=== PATIENT | male | born 1960 | race Caucasian/White ===

== ENCOUNTER 2023-12-22 16:34 | Inpatient (IN) | payer OTHER ==
[2023-12-22 16:57] LABS: VENOUS BASE EXCESS -13.2 mmol/L (-2-2); VENOUS O2 SATURATION 96.9 % (70-80); VENOUS PCO2 48.3 mmHg (38-52)
[2023-12-22 16:59] LABS: EOS % 5.1 % (0-4.5); HEMATOCRIT 27.5 % (35.4-49); HEMOGLOBIN 8.7 GM/dL (11.7-16.9); LYMPH % 27.6 % (8-40); MCHC 31.5 g/dl (32.0-35.9); MEAN CELL VOLUME 88.9 fl (80-96); MEAN PLT VOLUME 8.2 fl (7.5-11.1); MONO % 7.2 % (3.8-10.2); NEUT % 59.1 % (42.8-82.8); PLATELET COUNT 174 10^3/uL (134-434); RDW 17.2 % (11.9-15.9); WHITE BLOOD COUNT 4.3 K/mm3 (4.0-10.0)
[2023-12-22 17:06] LABS: INR 1.23 (0.83-1.09); PROTHROMBIN TIME (PATIENT) 14.2 SEC (9.7-13.0)
[2023-12-22 17:09] LABS: ACTIVATED PTT 28.5 SECONDS (25.2-36.5)
[2023-12-22 17:17] LABS: VENOUS PH 7.125 (7.310-7.410)
[2023-12-22 17:20] LABS: CHLORIDE 103 mmol/L (98-107); POTASSIUM 3.9 mmol/L (3.5-5.1); SODIUM 133 mmol/L (136-145)
[2023-12-22 17:23] LABS: ALBUMIN 2.5 g/dl (3.4-5.0); ANION GAP 9 mmol/L (4-13); BLOOD UREA NITROGEN 44.5 mg/dL (7-18); CALCIUM 7.8 mg/dL (8.5-10.1); CO2 21 mmol/L (21-32); GLUCOSE,RANDOM 182 mg/dL (74-106); MAGNESIUM 2.1 mg/dL (1.8-2.4)
[2023-12-22 17:26] LABS: CREATININE 1.3 mg/dL (0.55-1.3); PHOSPHOROUS 6.5 mg/dL (2.5-4.9); SGOT/AST 86 U/L (15-37); SGPT/ALT 35 U/L (13-61)
[2023-12-22 17:28] LABS: BILIRUBIN,TOTAL 0.5 mg/dL (0.2-1); TOT PROT 7.2 g/dl (6.4-8.2)
[2023-12-22 17:29] LABS: ALK PHOS 163 U/L (45-117)
[2023-12-22 17:40] LABS: LACTIC ACID 7.3 mmol/L (0.4-2.0)
[2023-12-22] MEDS: SODIUM CHLORIDE 1,000 ML IV STA ×2 (20:15→22:06)
[2023-12-22 20:16] LABS: EPI CELLS 2 /uL (0-25.1); HYALINE CASTS 0 /uL (0-3.1); PH,URINE 5.5 (5.0-8.0); URINE APPEARANCE CLEAR; URINE BACTERIA 231 /uL (0-1359); URINE BILIRUBIN NEGATIVE (NEGATIVE); URINE COLOR YELLOW; URINE GLUCOSE (UA) NEGATIVE (NEGATIVE); URINE KETONE NEGATIVE (NEGATIVE); URINE LEUK ESTERASE NEGATIVE (NEGATIVE); URINE NITRITE NEGATIVE (NEGATIVE); URINE PROTEIN 1+ (NEGATIVE); URINE RBC 7 /uL (0-23.9)
[2023-12-22 20:18] LABS: COCAINE, UR NEGATIVE (NEGATIVE)
[2023-12-22 20:19] LABS: PHENCYCLIDINE,URINE NEGATIVE (NEGATIVE)
[2023-12-22 20:20] LABS: METHADONE, UR NEGATIVE (NEGATIVE); URINE AMPHETAMINES NEGATIVE (NEGATIVE)
[2023-12-22 20:25] LABS: OPIATES, URI POSITIVE (NEGATIVE); URINE BARBITURATES NEGATIVE (NEGATIVE); URINE BENZODIAZEPINES POSITIVE (NEGATIVE)
[2023-12-22] MEDS ORDERED: PIPERACILLIN/TAZOB 3.375 GM 3.375 GM in DEXTROSE 5%-WATER - 50 ML IVPB SCH (20:30)
[2023-12-22] MEDS: MIDAZOLAM HCL 5 MG/1 ML Single Dose Vial IVPUSH ONE (20:38)
[2023-12-22] MEDS: MUPIROCIN 2% TOPICAL OINTMENT FOR DECOLONIZATION NS SCH (21:54)
[2023-12-22] MEDS: CHLORHEXIDINE GLUCONATE 4% CLEANSER FOR DECOLONIZATION TP SCH (21:55)
[2023-12-22] MEDS: MIDAZOLAM IN 0.9 % SOD.CHLORID 100 MG/100 ML PLAST..BAG IVPB SCH (21:55)
[2023-12-22] MEDS ORDERED: LACTATED RINGERS SOLUTION 1000 ML INFUS.BAG IV ONE (22:58)
[2023-12-22] MEDS: PIPERACILLIN/TAZOB 3.375 GM 3.375 GM in DEXTROSE 5%-WATER - 50 ML IVPB SCH (23:03)
[2023-12-22] MEDS: VANCOMYCIN/WATER 1250 MG 1,250 MG/250 ML BAG IVPB SCH (23:03)
[2023-12-22 23:32] LABS: POTASSIUM 3.6 mmol/L (3.5-5.1)
[2023-12-22 23:34] LABS: CALCIUM 8.1 mg/dL (8.5-10.1)
[2023-12-22 23:35] LABS: ALBUMIN 2.4 g/dl (3.4-5.0)
[2023-12-22 23:39] LABS: BILIRUBIN,TOTAL 0.6 mg/dL (0.2-1); TOT PROT 6.9 g/dl (6.4-8.2)
[2023-12-22] MEDS: LACTATED RINGERS SOLUTION 1000 ML INFUS.BAG IV ONE (23:43)
[2023-12-22 23:55] LABS: LACTIC ACID 3.3 mmol/L (0.4-2.0)
[2023-12-23 00:33] LABS: ARTERIAL BLD GAS O2 SATURATION 99.4 % (95-98); ARTERIAL BLOOD GAS BASE EXCESS -3.3 mmol/L (-2-2); ARTERIAL BLOOD GAS PO2 215.6 mmHg (80-100); ARTERIAL BLOOD GAS pH 7.375 (7.350-7.450)
[2023-12-23 00:34] LABS: VENT MODE A/C; VENT RATE 18
[2023-12-23] MEDS: LACTULOSE 20 GM/30 ML UDC (FOR ORAL USE ONLY) PO SCH (00:37)
[2023-12-23] MEDS ORDERED: HEPARIN NA (PORCINE) 5,000 UNITS/ML 1ML VIAL IVPUSH PRN (01:00)
[2023-12-23] MEDS: LACTATED RINGERS SOLUTION 1,000 ML/1,000 ML INFUS.BAG IV SCH (01:26)
[2023-12-23] MEDS: HEPARIN INFUSION - 25,000 UNITS/500 ML INFUS.BAG IVPB SCH (01:26)
[2023-12-23] MEDS ORDERED: FENTANYL NS IVPB 500 MCG/100 ML BAG IVPB ONE (04:46)
[2023-12-23 06:36] LABS: BASO % 0.1 % (0-2.0); HEMATOCRIT 28.2 % (35.4-49); HEMOGLOBIN 9.3 GM/dL (11.7-16.9); MCH 28.1 pg (25.7-33.7); MCHC 32.8 g/dl (32.0-35.9); MEAN CELL VOLUME 85.6 fl (80-96); MEAN PLT VOLUME 8.1 fl (7.5-11.1); MONO % 5.7 % (3.8-10.2); NEUT % 89.2 % (42.8-82.8); PLATELET COUNT 175 10^3/uL (134-434); RBC 3.29 M/mm3 (4.00-5.60); RDW 16.3 % (11.9-15.9); WHITE BLOOD COUNT 5.2 K/mm3 (4.0-10.0)
[2023-12-23 06:52] LABS: POTASSIUM 3.8 mmol/L (3.5-5.1)
[2023-12-23] MEDS: FENTANYL NS IVPB 500 MCG/100 ML BAG IVPB SCH (06:53)
[2023-12-23 07:00] LABS: CALCIUM 7.8 mg/dL (8.5-10.1)
[2023-12-23 07:02] LABS: ALBUMIN 2.5 g/dl (3.4-5.0); BLOOD UREA NITROGEN 33.7 mg/dL (7-18); MAGNESIUM 1.6 mg/dL (1.8-2.4)
[2023-12-23 07:04] LABS: BILIRUBIN,TOTAL 0.9 mg/dL (0.2-1); CREATININE 0.9 mg/dL (0.55-1.3); PHOSPHOROUS 4.1 mg/dL (2.5-4.9)
[2023-12-23 07:05] LABS: LACTIC ACID 2.8 mmol/L (0.4-2.0); TOT PROT 7.4 g/dl (6.4-8.2)
[2023-12-23] MEDS: MAGNESIUM SULF 50% (8.12 MEQ/2 ML-1 GM VIAL) IVPB ONE (08:08)
[2023-12-23] MEDS: HEPARIN NA (PORCINE) 5,000 UNITS/ML 1ML VIAL IVPUSH PRN (08:59)
[2023-12-23] MEDS: PANTOPRAZOLE SODIUM 40 MG VIAL IVPUSH SCH (09:05)
[2023-12-23] MEDS: PROPOFOL 1,000,000 MCG/100 ML VIAL IVPB SCH (11:33)
[2023-12-23] MEDS: ENOXAPARIN NA (PORCINE) 120 MG/0.8 ML DISP.SYRIN SQ SCH (13:40)
[2023-12-23 14:56] LABS: CHLORIDE 102 mmol/L (98-107); SODIUM 138 mmol/L (136-145)
[2023-12-23 14:58] LABS: BLOOD UREA NITROGEN 30.8 mg/dL (7-18); CO2 28 mmol/L (21-32); GLUCOSE,RANDOM 152 mg/dL (74-106)
[2023-12-23 15:01] LABS: CREATININE 0.7 mg/dL (0.55-1.3)
[2023-12-23 15:06] LABS: ANION GAP 8 mmol/L (4-13); POTASSIUM 2.9 mmol/L (3.5-5.1)
[2023-12-23] MEDS: SODIUM CHLORIDE 0.45% 1,000 ML IV SCH (15:08)
[2023-12-23 15:43] LABS: EPI CELLS 0 /uL (0-25.1); HYALINE CASTS 0 /uL (0-3.1); URINE APPEARANCE CLEAR; URINE BACTERIA 2 /uL (0-1359); URINE BILIRUBIN NEGATIVE (NEGATIVE); URINE COLOR YELLOW; URINE GLUCOSE (UA) NEGATIVE (NEGATIVE); URINE KETONE NEGATIVE (NEGATIVE); URINE LEUK ESTERASE NEGATIVE (NEGATIVE); URINE NITRITE NEGATIVE (NEGATIVE); URINE PROTEIN NEGATIVE (NEGATIVE); URINE RBC 494 /uL (0-23.9); URINE WBC 4 /uL (0-25.8)
[2023-12-23] MEDS: POTASSIUM CHLORIDE ORAL LIQUID 20 MEQ/15 ML GT ONE (16:15)
[2023-12-23] MEDS: POTASSIUM CHLORIDE 10 MEQ in SODIUM CHLORIDE 0.45% 1,000 ML IVPB SCH (16:59)
[2023-12-23] MEDS: PIPERACILLIN/TAZOB 4.5 GM 4.5 GM in DEXTROSE 5%-WATER 100 ML IVPB SCH (17:00)
[2023-12-23] MEDS: KCL 20 MEQ PREMIX BAG 20 MEQ/100 ML INFUS.BAG IVPB SCH (17:07)
[2023-12-23] MEDS: POTASSIUM CHLORIDE ORAL LIQUID 20 MEQ/15 ML PO ONE (17:20)
[2023-12-23 19:25] LABS: POTASSIUM 3.7 mmol/L (3.5-5.1)
[2023-12-23 19:26] LABS: CALCIUM 7.5 mg/dL (8.5-10.1)
[2023-12-23 19:27] LABS: BLOOD UREA NITROGEN 26.2 mg/dL (7-18)
[2023-12-23 19:29] LABS: CREATININE 0.7 mg/dL (0.55-1.3)
[2023-12-23] MEDS: VANCOMYCIN/WATER 1250 MG 1,250 MG/250 ML BAG IVPB SCH (19:39)
[2023-12-23] MEDS ORDERED: ENOXAPARIN NA (PORCINE) 60 MG/0.6 ML DISP.SYRIN SQ SCH (22:00)
[2023-12-24 01:26] LABS: BLOOD UREA NITROGEN 26.5 mg/dL (7-18); CALCIUM 7.5 mg/dL (8.5-10.1); CREATININE 0.7 mg/dL (0.55-1.3); MAGNESIUM 1.8 mg/dL (1.8-2.4); POTASSIUM 3.5 mmol/L (3.5-5.1)
[2023-12-24] MEDS: KCL 20 MEQ PREMIX BAG 20 MEQ/100 ML INFUS.BAG IVPB SCH (01:57)
[2023-12-24 06:29] LABS: ARTERIAL BLD GAS O2 SATURATION 99.4 % (95-98); ARTERIAL BLOOD GAS BASE EXCESS -1.5 mmol/L (-2-2); ARTERIAL BLOOD GAS pH 7.422 (7.350-7.450)
[2023-12-24 06:33] LABS: VENT MODE V-A/C; VENT RATE 18
[2023-12-24 07:29] LABS: BASO % 0.2 % (0-2.0); EOS % 1.1 % (0-4.5); HEMOGLOBIN 8.4 GM/dL (11.7-16.9); LYMPH % 11.3 % (8-40); MCH 28.1 pg (25.7-33.7); MCHC 33.5 g/dl (32.0-35.9); MEAN CELL VOLUME 83.9 fl (80-96); MEAN PLT VOLUME 8.4 fl (7.5-11.1); NEUT % 81.4 % (42.8-82.8); PLATELET COUNT 140 10^3/uL (134-434); RBC 2.98 M/mm3 (4.00-5.60); RDW 16.4 % (11.9-15.9); WHITE BLOOD COUNT 3.4 K/mm3 (4.0-10.0)
[2023-12-24 07:47] LABS: ALBUMIN 2.1 g/dl (3.4-5.0); BLOOD UREA NITROGEN 28.9 mg/dL (7-18); MAGNESIUM 1.8 mg/dL (1.8-2.4)
[2023-12-24 07:50] LABS: CALCIUM 7.8 mg/dL (8.5-10.1); CREATININE 0.8 mg/dL (0.55-1.3); PHOSPHOROUS 3.8 mg/dL (2.5-4.9)
[2023-12-24 07:51] LABS: BILIRUBIN,TOTAL 0.7 mg/dL (0.2-1); TOT PROT 6.3 g/dl (6.4-8.2)
[2023-12-24 08:34] LABS: POTASSIUM 3.9 mmol/L (3.5-5.1)
[2023-12-24 08:35] LABS: BLOOD UREA NITROGEN 27.6 mg/dL (7-18); CALCIUM 7.6 mg/dL (8.5-10.1)
[2023-12-24 08:39] LABS: CREATININE 0.8 mg/dL (0.55-1.3)
[2023-12-24] MEDS: SODIUM CHLORIDE 0.45% 1,000 ML IV SCH (13:30)
[2023-12-24 18:50] LABS: POTASSIUM 3.9 mmol/L (3.5-5.1)
[2023-12-24 18:54] LABS: ALBUMIN 2.2 g/dl (3.4-5.0); BLOOD UREA NITROGEN 26.2 mg/dL (7-18)
[2023-12-24 18:57] LABS: CREATININE 0.9 mg/dL (0.55-1.3)
[2023-12-24 18:58] LABS: BILIRUBIN,TOTAL 0.8 mg/dL (0.2-1); TOT PROT 6.6 g/dl (6.4-8.2)
[2023-12-25 07:25] LABS: BASO % 0.5 % (0-2.0); EOS % 0.8 % (0-4.5); HEMATOCRIT 26.6 % (35.4-49); HEMOGLOBIN 8.7 GM/dL (11.7-16.9); LYMPH % 8.8 % (8-40); MCH 27.8 pg (25.7-33.7); MCHC 32.6 g/dl (32.0-35.9); MEAN CELL VOLUME 85.2 fl (80-96); MEAN PLT VOLUME 7.9 fl (7.5-11.1); MONO % 6.9 % (3.8-10.2); PLATELET COUNT 173 10^3/uL (134-434); RBC 3.12 M/mm3 (4.00-5.60); RDW 16.6 % (11.9-15.9); WHITE BLOOD COUNT 4.5 K/mm3 (4.0-10.0)
[2023-12-25 07:41] LABS: POTASSIUM 3.8 mmol/L (3.5-5.1)
[2023-12-25 07:44] LABS: ALBUMIN 2.2 g/dl (3.4-5.0); BLOOD UREA NITROGEN 23.1 mg/dL (7-18); CALCIUM 7.6 mg/dL (8.5-10.1); MAGNESIUM 1.8 mg/dL (1.8-2.4)
[2023-12-25 07:48] LABS: CREATININE 0.9 mg/dL (0.55-1.3); PHOSPHOROUS 3.2 mg/dL (2.5-4.9)
[2023-12-25 07:50] LABS: TOT PROT 6.4 g/dl (6.4-8.2)
[2023-12-25] MEDS: LACTATED RINGERS SOLUTION 1,000 ML/1,000 ML INFUS.BAG IV SCH (08:59)
[2023-12-25] MEDS: ACETAMINOPHEN 650 MG/20.3 ML ORAL SOLUTION (CUPS) PO PRN (10:40)
[2023-12-25] MEDS ORDERED: ACETAMINOPHEN INJECTION 100 ML IVPB ONE (16:49)
[2023-12-25] MEDS: ACETAMINOPHEN 1000 MG/100 ML BAG IVPB PRN (16:50)
[2023-12-25] MEDS: PIPERACILLIN/TAZOB 3.375 GM 3.375 GM in DEXTROSE 5%-WATER - 50 ML IVPB SCH ×2 (20:15)
[2023-12-26 07:48] LABS: BASO % 0.5 % (0-2.0); HEMOGLOBIN 7.5 GM/dL (11.7-16.9); LYMPH % 14.9 % (8-40); MCH 27.5 pg (25.7-33.7); MCHC 32.6 g/dl (32.0-35.9); MEAN CELL VOLUME 84.6 fl (80-96); MEAN PLT VOLUME 8.1 fl (7.5-11.1); MONO % 9.1 % (3.8-10.2); NEUT % 74.5 % (42.8-82.8); PLATELET COUNT 140 10^3/uL (134-434); RBC 2.73 M/mm3 (4.00-5.60); RDW 16.5 % (11.9-15.9); WHITE BLOOD COUNT 3.7 K/mm3 (4.0-10.0)
[2023-12-26 08:10] LABS: POTASSIUM 3.4 mmol/L (3.5-5.1)
[2023-12-26 08:25] LABS: BLOOD UREA NITROGEN 18.8 mg/dL (7-18); CALCIUM 7.8 mg/dL (8.5-10.1)
[2023-12-26 08:26] LABS: ALBUMIN 2.2 g/dl (3.4-5.0); MAGNESIUM 1.9 mg/dL (1.8-2.4)
[2023-12-26 08:28] LABS: CREATININE 0.8 mg/dL (0.55-1.3); PHOSPHOROUS 3.3 mg/dL (2.5-4.9)
[2023-12-26 08:29] LABS: BILIRUBIN,TOTAL 0.6 mg/dL (0.2-1); TOT PROT 6.2 g/dl (6.4-8.2)
[2023-12-26] MEDS: KCL 10 MEQ IVPB 10 MEQ/100 ML INFUS.BAG IVPB SCH (14:42)
[2023-12-26] MEDS: levETIRAcetam 500 MG/5 ML INJECTION VIAL IVPB ONE (19:43)
[2023-12-27 07:35] LABS: BASO % 0.7 % (0-2.0); EOS % 5.5 % (0-4.5); HEMATOCRIT 21.5 % (35.4-49); HEMOGLOBIN 7.1 GM/dL (11.7-16.9); LYMPH % 22.7 % (8-40); MCH 27.8 pg (25.7-33.7); MCHC 32.9 g/dl (32.0-35.9); MEAN CELL VOLUME 84.6 fl (80-96); MEAN PLT VOLUME 7.6 fl (7.5-11.1); MONO % 8.6 % (3.8-10.2); NEUT % 62.5 % (42.8-82.8); PLATELET COUNT 116 10^3/uL (134-434); RBC 2.54 M/mm3 (4.00-5.60); RDW 16.7 % (11.9-15.9); WHITE BLOOD COUNT 2.5 K/mm3 (4.0-10.0)
[2023-12-27 07:53] LABS: BLOOD UREA NITROGEN 16.6 mg/dL (7-18); MAGNESIUM 1.9 mg/dL (1.8-2.4)
[2023-12-27 07:56] LABS: CREATININE 0.7 mg/dL (0.55-1.3)
[2023-12-27 07:57] LABS: BILIRUBIN,TOTAL 0.6 mg/dL (0.2-1); TOT PROT 5.7 g/dl (6.4-8.2)
[2023-12-27 08:08] LABS: POTASSIUM 3.6 mmol/L (3.5-5.1)
[2023-12-27] MEDS: levETIRAcetam 500 MG/5 ML INJECTION VIAL IVPB SCH (09:34)
[2023-12-27] MEDS: ARTIFICIAL TEARS OPHTHALMIC DROPS OU SCH (12:19)
[2023-12-27 14:24] VITALS: BMI 36.2
[2023-12-27] MEDS: CEFTRIAXONE 2 GM in DEXTROSE 5%-WATER 100 ML IVPB SCH (17:12)
[2023-12-27] MEDS: LACTULOSE 20 GM/30 ML UDC (FOR ORAL USE ONLY) PO SCH (21:15)
[2023-12-28] MEDS: ALBUTEROL SO4 0.083% IH SOL 2.5 MG/3 ML VIAL.NEB. NEB PRN (04:45)
[2023-12-28 06:46] LABS: BASO % 0.4 % (0-2.0); EOS % 4.1 % (0-4.5); HEMOGLOBIN 7.4 GM/dL (11.7-16.9); LYMPH % 19.7 % (8-40); MCH 27.5 pg (25.7-33.7); MCHC 32.4 g/dl (32.0-35.9); MEAN PLT VOLUME 7.8 fl (7.5-11.1); MONO % 8.3 % (3.8-10.2); NEUT % 67.5 % (42.8-82.8); PLATELET COUNT 117 10^3/uL (134-434); RBC 2.71 M/mm3 (4.00-5.60); RDW 16.6 % (11.9-15.9)
[2023-12-28 07:02] LABS: POTASSIUM 3.7 mmol/L (3.5-5.1)
[2023-12-28 07:06] LABS: CALCIUM 7.8 mg/dL (8.5-10.1)
[2023-12-28 07:07] LABS: ALBUMIN 2.1 g/dl (3.4-5.0); BLOOD UREA NITROGEN 13.9 mg/dL (7-18); MAGNESIUM 1.7 mg/dL (1.8-2.4)
[2023-12-28 07:10] LABS: CREATININE 0.7 mg/dL (0.55-1.3)
[2023-12-28 07:11] LABS: BILIRUBIN,TOTAL 0.3 mg/dL (0.2-1)
[2023-12-28] MEDS: MAGNESIUM SULFATE IN WATER 2 GM/50 ML IVPB IVPB ONE (07:51)
[2023-12-28] MEDS: MIDAZOLAM HCL 2 MG/2 ML SINGLE DOSE VIAL IVPUSH ONE (17:00)
[2023-12-28] MEDS ORDERED: MIDAZOLAM HCL 2 MG/2 ML SINGLE DOSE VIAL ONE (17:02)
[2023-12-28] MEDS ORDERED: methylPREDNISolone NA SUCC 1000 MG/8 ML VIAL IVPB SCH (23:45)
[2023-12-29 00:14] LABS: ARTERIAL BLD GAS O2 SATURATION 85.2 % (95-98); ARTERIAL BLOOD GAS BASE EXCESS -1.8 mmol/L (-2-2); ARTERIAL BLOOD GAS PO2 49.5 mmHg (80-100); ARTERIAL BLOOD GAS pH 7.399 (7.350-7.450)
[2023-12-29 00:18] LABS: ALLENS TEST POSITIVE; VENT MODE A/C; VENT RATE 12
[2023-12-29 01:11] LABS: BASO % 0.6 % (0-2.0); EOS % 3.7 % (0-4.5); HEMATOCRIT 22.6 % (35.4-49); HEMOGLOBIN 7.3 GM/dL (11.7-16.9); LYMPH % 19.5 % (8-40); MCH 27.4 pg (25.7-33.7); MCHC 32.4 g/dl (32.0-35.9); MEAN CELL VOLUME 84.7 fl (80-96); MEAN PLT VOLUME 7.4 fl (7.5-11.1); NEUT % 68.2 % (42.8-82.8); PLATELET COUNT 117 10^3/uL (134-434); RBC 2.67 M/mm3 (4.00-5.60); WHITE BLOOD COUNT 2.5 K/mm3 (4.0-10.0)
[2023-12-29 01:13] LABS: EPI CELLS 3 /uL (0-25.1); HYALINE CASTS 27 /uL (0-3.1); PH,URINE 5.5 (5.0-8.0); URINE APPEARANCE TURBID; URINE BACTERIA 15 /uL (0-1359); URINE BILIRUBIN NEGATIVE (NEGATIVE); URINE COLOR YELLOW; URINE GLUCOSE (UA) NEGATIVE (NEGATIVE); URINE KETONE TRACE (NEGATIVE); URINE LEUK ESTERASE 2+ (NEGATIVE); URINE NITRITE NEGATIVE (NEGATIVE); URINE PROTEIN TRACE (NEGATIVE); URINE UROBILINOGEN 0.2 mg/dL (0.2-1.0); URINE WBC 841 /uL (0-25.8)
[2023-12-29 01:28] LABS: POTASSIUM 4.1 mmol/L (3.5-5.1)
[2023-12-29 01:32] LABS: BLOOD UREA NITROGEN 14.3 mg/dL (7-18); CALCIUM 7.8 mg/dL (8.5-10.1); MAGNESIUM 2.1 mg/dL (1.8-2.4)
[2023-12-29 01:35] LABS: CREATININE 0.7 mg/dL (0.55-1.3); PHOSPHOROUS 3.1 mg/dL (2.5-4.9)
[2023-12-29 01:37] LABS: BILIRUBIN,TOTAL 0.3 mg/dL (0.2-1); TOT PROT 5.9 g/dl (6.4-8.2)
[2023-12-29 01:47] LABS: BLOOD UREA NITROGEN 14.1 mg/dL (7-18); MAGNESIUM 2.1 mg/dL (1.8-2.4)
[2023-12-29 01:50] LABS: BILIRUBIN,DIRECT 0.1 mg/dL (0.0-0.2); CREATININE 0.7 mg/dL (0.55-1.3); PHOSPHOROUS 3.1 mg/dL (2.5-4.9)
[2023-12-29 01:51] LABS: BILIRUBIN,TOTAL 0.3 mg/dL (0.2-1); TOT PROT 5.9 g/dl (6.4-8.2)
[2023-12-29 02:44] LABS: POTASSIUM 4.1 mmol/L (3.5-5.1)
[2023-12-29 02:55] LABS: URINE RBC 1475.5 /uL (0-23.9); YEAST MANY (NEGATIVE)
[2023-12-29 06:22] LABS: ARTERIAL BLD GAS O2 SATURATION 98.9 % (95-98); ARTERIAL BLOOD GAS BASE EXCESS -2.3 mmol/L (-2-2); ARTERIAL BLOOD GAS PO2 143.6 mmHg (80-100); ARTERIAL BLOOD GAS pH 7.418 (7.350-7.450)
[2023-12-29 06:32] LABS: ALLENS TEST POSITIVE
[2023-12-29 06:33] LABS: VENT MODE A/C; VENT RATE 12
[2023-12-29 07:12] LABS: BASO % 0.7 % (0-2.0); EOS % 3.1 % (0-4.5); HEMATOCRIT 22.1 % (35.4-49); HEMOGLOBIN 7.1 GM/dL (11.7-16.9); LYMPH % 19.7 % (8-40); MCH 27.3 pg (25.7-33.7); MCHC 32.1 g/dl (32.0-35.9); MEAN PLT VOLUME 7.8 fl (7.5-11.1); MONO % 7.8 % (3.8-10.2); NEUT % 68.7 % (42.8-82.8); PLATELET COUNT 114 10^3/uL (134-434); RDW 16.7 % (11.9-15.9); WHITE BLOOD COUNT 2.7 K/mm3 (4.0-10.0)
[2023-12-29] MEDS: methylPREDNISolone NA SUCC 1000 MG/8 ML VIAL IVPB SCH (09:17)
[2023-12-29 11:47] LABS: POTASSIUM 4.2 mmol/L (3.5-5.1)
[2023-12-29 11:49] LABS: BLOOD UREA NITROGEN 14.2 mg/dL (7-18)
[2023-12-29 11:52] LABS: CREATININE 0.6 mg/dL (0.55-1.3)
[2023-12-29 11:54] LABS: BILIRUBIN,TOTAL 0.3 mg/dL (0.2-1)
[2023-12-29] MEDS: morphine SULFATE 4 MG/ML VIAL IVPUSH ONE ×3 (12:49→13:34)
[2023-12-29] MEDS: MORPHINE SULFATE/0.9% NACL/PF 100 MG/100 ML BAG IVPB SCH (12:50)
[2023-12-29] MEDS ORDERED: morphine SULFATE 4 MG/ML VIAL ONE ×2 (13:26→13:33)
[2023-12-29] MEDS ORDERED: RAPID SEQUENCE INTUBATION KIT NR ONE (13:38)
[2023-12-29] MEDS: GLYCOPYRROLATE 0.2 MG/1 ML VIAL IM ONE (13:49)
[2023-12-30] MEDS: SCOPOLAMINE HYDROBROMIDE 1 PATCH PATCH.TD72 TD SCH (08:08)
[2023-12-31] MEDS: MORPHINE 100 MG/100 ML MG IVPB SCH ×2 (01:38→22:13)
[2024-01-02] MEDS: SCOPOLAMINE HYDROBROMIDE 1 PATCH PATCH.TD72 TD SCH (08:03)
[2024-01-02] MEDS ORDERED: SCOPOLAMINE HYDROBROMIDE 1 PATCH PATCH.TD72 TD SCH (08:15)
[2024-01-02 12:26] VITALS: BP 195/94
[2024-01-02] MEDS: ACETAMINOPHEN 1000 MG/100 ML BAG IVPB PRN (13:58)
[2024-01-02] MEDS: MORPHINE 100 MG/100 ML MG IVPB SCH (14:08)
[2024-01-03 06:42] VITALS: TEMP 101.9
[2024-01-03] MEDS: MORPHINE 100 MG/100 ML MG IVPB SCH (09:25)
[2024-01-03] MEDS: HYOSCYAMINE SULFATE 0.125 MG *ODT PO PRN (12:20)
[2024-01-03] MEDS: KETOROLAC TROMETHAMINE 30 MG/1 ML VIAL IVPUSH PRN (16:59)
[2024-01-03] MEDS: LORazepam 2 MG/ML SDV VIAL IVPUSH SCH (21:36)
[2024-01-04 08:48] VITALS: PULSE 108; RESP 36
[2024-01-04] MEDS ORDERED: MORPHINE 100 MG/100 ML MG ONE (09:25)
[2024-01-04] MEDS ORDERED: ACETAMINOPHEN 325 MG SUPP.RECT RC PRN (10:24)
== END 2024-01-04 14:57 | disposition expired | DRG 812 ==
LOC: JER 16:34 → JERBED 16:46 → JICU 20:40 → UNDODISIN 22:45 → J6S 12-31 21:47
PROVIDERS: ADMIT Internal Medicine; ATTEND Internal Medicine
PROC: 5A1955Z Respiratory Ventilation, Greater than 96 Consecutive Hours (ICD-10-PCS; principal; 2023-12-22)
PROC: 0BH17EZ Insertion of Endotracheal Airway into Trachea, Via Natural or Artificial Opening (ICD-10-PCS; 2023-12-22)
PROC: 05HN33Z Insertion of Infusion Device into Left Internal Jugular Vein, Percutaneous Approach (ICD-10-PCS; 2023-12-22)
PROC: B544ZZA Ultrasonography of Left Jugular Veins, Guidance (ICD-10-PCS; 2023-12-22)
DX: T40.2X1A Poisoning by other opioids, accidental (unintentional), initial encounter (principal); Y92.89 Other specified places as the place of occurrence of the external cause; I46.9 Cardiac arrest, cause unspecified; J69.0 Pneumonitis due to inhalation of food and vomit; G82.50 Quadriplegia, unspecified; G93.1 Anoxic brain damage, not elsewhere classified; R40.20 Unspecified coma; D61.818 Other pancytopenia; E87.20 Acidosis, unspecified; I24.89 Other forms of acute ischemic heart disease; G40.901 Epilepsy, unspecified, not intractable, with status epilepticus; I10 Essential (primary) hypertension; K74.60 Unspecified cirrhosis of liver; E66.9 Obesity, unspecified; Z68.37 Body mass index [BMI] 37.0-37.9, adult
CPT/HCPCS: 0241U-QW; 36415; 36600; 70450-TC; 71045-TC-FY; 71275-TC; 72170-TC-FY; 80048; 80053; 80307; 81003; 82024; 82140; 82248; 82272; 82533; 82550; 82553; 82570; 82803; 82962; 83036; 83605; 83735; 83930; 83935; 84100; 84132; 84300; 84439; 84443; 84484; 85025; 85610; 85730; 86850; 86900; 86901; 87040; 87070; 87081; 87086; 87205; 93005; 93010; 93306-TC; 94002; 94640; 99291; 99292; J0131; J1644; J2597; Q9967